=== PATIENT | male | born 1975 | race Caucasian/White ===

== ENCOUNTER 2020-12-12 12:08 | Emergency (ER) | payer SELFPAY ==
[2020-12-12 12:46] VITALS: BP 184/118; PULSE 64; RESP 16; TEMP 36.7; O2SAT 98; BMI 36.9
--- NOTE | 2020-12-12 13:14 | W.ED.HEATRA ---
HPI - Head Injury General: Chief complaint: Head Injury Stated complaint: FACE INJURY Time Seen by Provider: 12/12/20 13:05 Source: patient Mode of arrival: ambulatory Limitations: no limitations History of Present Illness: HPI Narrative: Patient is a 45-year-old male who presents to ED today for for evaluation following nasal trauma/laceration. 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 He sustained a nasal laceration. Tetanus is up-to-date. No LOC. Patient has no other complaints other than the nasal laceration. MD Complaint: other (facial injury/laceration) Onset (ago): hour(s) Place: work Loss of Consciousness: no Location of injury: face (nose) Severity: mild Radiation: none Other Injuries: none Associated symptoms: Reports no associated symptoms; Deny confusion, nausea, neck pain, vertigo or vomiting Review of Systems Eyes: Denies: change in vision, blurry vision, photophobia, eye discomfort, floaters or seeing flashes GI: Denies: nausea or vomiting Musc: Denies: neck pain Neuro: Denies: headache(s), numbness in extremities, weakness in extremities, sensory changes, difficulty walking, dizziness, vertigo or confusion Physical Exam Const: COMMON NORMALS: no acute distress, average body habitus, patient oriented x3, no limitations, healthy appearing, alert and well nourished GENERAL APPEARANCE: cooperative ORIENTATION/CONSCIOUSNESS: Yes awake, Yes oriented to person, Yes oriented to place and Yes oriented to time HENMT: COMMON NORMALS: normocephalic, atraumatic and Normal nasal mucous membranes and turbinates present HEAD & SCALP: normal to inspection, normocephalic and atraumatic FACE & SINUS: sinuses nontender and other (1.5 laceration to nose) FACE & SINUS IMAGES: 1. laceration NOSE: Normal nares present, Normal nasal mucous membranes and turbinates present, Normal septum present and No nasal discharge present Eye: GENERAL EYE: appearance normal, both eyes and all related structures Neck/C-Spine: COMMON NORMALS: full ROM CERVICAL SPINE: Yes cervical ROM normal, No pain with cervical ROM and No Cervical spine tenderness Neuro: KM COMA SCALE: document GCS findings Km coma scale eye opening: Spontaneous [place] coma scale verbal response: Orientated [place] coma scale motor response: Obey commands [place] coma scale total score: 15 COMMON NORMALS: patient oriented x3 SENSORIUM/ORIENTATION: Yes alert, Yes oriented to person, Yes oriented to place and Yes oriented to time Procedures Laceration Laceration 1: Site: face (nose) Size (cm): 1.5 Description: flap and irregular Depth: simple, single layer Local Anesthetic: lidocaine 1% Amount of anesthesia used (mL): 1.0 Pre-repair: wound explored and irrigated extensively Skin layer closed with: nylon Size (cm): 4-0 Number of sutures: 6 Technique: simple, interrupted Course Vital Signs: Vital signs: Vital Signs Temperature 98.1 F 12/12/20 12:46 Pulse Rate 68 12/12/20 13:23 Respiratory Rate 18 12/12/20 13:23 Blood Pressure 178/98 12/12/20 13:23 Pulse Oximetry 98 12/12/20 13:23 MDM - Head Injury Imaging Data^: XR nasal bones: Radiologist's impression: Rashmi [address] [id number] ReportSigned Patient: Caroline Souza #: [id number]: 1975Acct#:[id number]/Sex: 45 / MADM Date: 12/12/20[facility]Attending Dr: Ordering Provider/Ordering MD: Kimberly Galvez Date of Service: 12/12/20 Procedure(s): XR nasal bones min 3V 68325 Accession Number(s): [id number] Report Number: [id number] WS: [id number] NaSal bones, 3 views, 12/12/2020 Clinical Data: trauma Comparison: None. Findings: The nasal bone and nasal spine are intact. The paranasal sinuses show no mucoperiosteal thickening or air-fluid levels. The orbits, mandible and maxilla are not remarkable. On the lateral view there is a soft tissue deformity which probably represents the injury site overlying the nasal bone. XR/XR nasal bones min 3V 25212 Impression: Negative nasal bones. Dictated By:Jen Culver MDSigned By:Jen Culver MDSigned Date/Time:12/12/20 1337DD/ 1335 Discharge Plan Discharge Patient Disposition: Home Clinical Impression: Laceration of nose Qualifiers: Encounter type: initial encounter Qualified Code(s): S01.21XA - Laceration without foreign body of nose, initial encounter Condition: Stable Prescriptions: New cephalexin 500 mg capsule 500 mg PO Q6H 7 Days Qty: 28 RF: 0 Discharge Orders: Discharge ED (Routine); Ordered 12/12/20 Ordered By: Kimberly Galvez Patient Instructions: Suture Care (ED), Laceration (ED) Activity Restrictions/Additional Instructions: Keep wound/laceration clean with warm soap and water twice daily. Monitor for signs of infection such as redness, swelling, increased pain, or drainage. Please seek medical re-evaluation if these occur. If you received sutures today these will need to be removed (unless you were told by the provider that they are absorbable). The provider should have discussed with you the length of time until removal-7 DAYS. You may return to the emergency department for this service. If your wound was closed with Steri-Strips or glue/adhesive these will fall off within the next week or so. Coding Level of Care Code ED Manager English for Anmol Pool
[2020-12-12 13:23] VITALS: BP 178/98; PULSE 68; RESP 18; O2SAT 98
== END 2020-12-12 14:07 | disposition home or self-care (01) ==
PROVIDERS: Emergency Provider Physician Assistant
DX: S01.21XA Laceration without foreign body of nose, initial encounter (principal); W22.8XXA Striking against or struck by other objects, initial encounter
CPT/HCPCS: 12011; 70160; 99282